=== PATIENT | female | born 1970 | race Caucasian/White ===

== ENCOUNTER 2017-06-18 16:46 | Emergency (ER) | payer OTHER ==
[~2017-06-18] VITALS: Ht 152.4 cm; Wt 79.0 kg
[~2017-06-18 16:46] MED LIST: ALBU8.5H8 IH; ASPI-556 PO; ATEN25TA PO; BECL8.7A6 IH; GABA-529 PO; GLIP5TAB11 PO; METF10002 PO; MONT10TA24 PO; OMEP10CA41 PO
[2017-06-18 16:57] LABS: GLUCOSE,POINT OF CARE 163 MG/DL (70-110)
[2017-06-18] MEDS ORDERED: KETOROLAC TROMETHAMINE 60 MG/2 ML VIAL IM ONE (18:30)
[2017-06-18 19:11] VITALS: BP 118/78
== END 2017-06-18 19:11 | disposition home or self-care (01) ==
LOC: EMS 16:47
DX: G62.9 Polyneuropathy, unspecified (principal); M72.2 Plantar fascial fibromatosis; E03.9 Hypothyroidism, unspecified; E78.00 Pure hypercholesterolemia, unspecified; I10 Essential (primary) hypertension; J45.909 Unspecified asthma, uncomplicated; K21.9 Gastro-esophageal reflux disease without esophagitis; Z79.82 Long term (current) use of aspirin; Z88.0 Allergy status to penicillin
CPT/HCPCS: 82962; 96372; 99283; J1885